=== PATIENT | male | born 2000 | race Caucasian/White ===

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

== ENCOUNTER 2020-09-01 00:45 | Emergency (ER) | payer OTHER ==
[2020-09-01] MEDS ORDERED: MORPHINE 4 MG/ML SYR ONE (01:49)
[2020-09-01] MEDS ORDERED: ONDANSETRON 4 MG/2 ML VIAL ONE (01:49)
[2020-09-01] MEDS ORDERED: NA CHLORIDE 0.9% 1,000 ML ONE (01:49)
[2020-09-01 01:50] LABS: Absolute Lymphocytes (CBC) 1.7 K/uL (0.7-4.9); Basophils % 0.5 % (0-1.3); Hematocrit 46.7 % (39.6-49.0); Lymphocytes % 12.7 % (15.3-44.8); RBC Red Blood Cell Count 5.44 M/uL (4.33-5.43)
[2020-09-01 01:57] LABS: Protime INR 0.97
[2020-09-01 02:05] LABS: ALT/SGPT 55 U/L (12-78); AST/SGOT 28 U/L (15-37); Albumin 4.4 g/dL (3.4-5.0); Alkaline Phosphatase 55 U/L (45-117); BUN Blood Urea Nitrogen 6 mg/dL (7-18); Bicarbonate 22 mmol/L (21-32); Bilirubin Direct 0.1 mg/dL (0-0.2); Bilirubin Total 0.4 mg/dL (0.2-1.0); Glucose Level 120 mg/dL (74-106); Potassium 3.3 mmol/L (3.5-5.1); Protein, Total 7.8 g/dL (6.4-8.2); Sodium Level 144 mmol/L (136-145)
[2020-09-01 03:27] LABS: Barbiturates NEGATIVE (NEGATIVE); Benzodiazepines NEGATIVE (NEGATIVE); Cocaine NEGATIVE (NEGATIVE); METHAMPHETAM NEGATIVE (NEGATIVE); Methadone NEGATIVE (NEGATIVE); Opiates NEGATIVE (NEGATIVE); Phencyclidine NEGATIVE (NEGATIVE); THC Cannibis NEGATIVE (NEGATIVE)
[2020-09-01] MEDS ORDERED: LIDOCAINE 2% MPF 5 ML VIAL ONE (05:06)
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
[2020-09-01 06:28] VITALS: TEMP 99
[2020-09-01 06:35] VITALS: BP 115/56; O2SAT 95
--- NOTE | 2020-09-01 20:26 | RAD REPORT ---
EXAM DESCRIPTION: CT - Head C Spine Cap W Con - 09/01/2020 6:39 am ADDENDUM #1 THIS REPORT CONTAINS FINDINGS THAT MAY BE CRITICAL TO PATIENT CARE: The findings were communicated via telephone conference with Dr. Cristina on 09/01/2020 3:46 AM CDT. The results were acknowledged and understood. Electronically signed by: Zeke Vail MD 09/01/2020 3:47 AM CDT End of Addendum EXAM: CT Head COMPARISON: None. CLINICAL HISTORY: [facility] MAIN TRAUMA TECHNIQUE: Axial images were obtained from skull base to vertex without intravenous contrast. Imag es viewed on bone and brain windows. Multiplanar reformats were performed. Automated exposure contr ol was utilized on this examination as a dose lowering technique. FINDINGS: Brain parenchyma, ventricles, dura, meninges, and extra-axial spaces: Ventricles and sulci are normal. No abnormal attenuation of brain parenchyma is present. No acute intracranial hemor rhage or abnormal extra-axial fluid collections are present. Vascular structures: No hyperdense arteries or veins. Calvarium, mastoid air cells, paranasal sinuses and orbits: A small left scalp hematoma is present. T here is also a small left supraorbital scalp contusion. The calvarium is normal. The mastoid air cell s are clear. Visualized paranasal sinuses are unremarkable. Orbital structures are unremarkable. IMPRESSION: 1. No acute intracranial abnormality. 2. Small left supraorbital and scalp contusions. EXAM DESCRIPTION: CT Maxillofacial COMPARISON: None. CLINICAL HISTORY: [facility] MAIN TRAUMA TECHNIQUE: High resolution axial CT images are obtained through the maxillofacial bones without intr avenous contrast followed by multiplanar reformats. Automated exposure control was utilized on this e xamination as a dose lowering technique. FINDINGS: Maxillofacial bones and mandible: A minimally displaced right nasal bone fracture is noted . Orbital structures: The globes, optic nerves, extraocular muscles, and post septal tissues are intact . Paranasal sinuses: Trace left maxillary sinus mucosal thickening. Soft tissues: Small left supraorbital and left maxillary soft tissue contusions Visualized intracranial structures: The visualized structures of the skull base are normal. Visualize d intracranial structures are normal. IMPRESSION: 1. Mildly displaced right nasal bone fracture. 2. Small left supraorbital and left maxillary soft tissue contusions. EXAM DESCRIPTION: CT Cervical Spine COMPARISON: None. CLINICAL HISTORY: [facility] MAIN TRAUMA TECHNIQUE: Axial CT images were obtained through the entire cervical spine without contrast. [place]it [place] and coronal reconstructions are provided. Automated exposure control was utilized on this examina tion as a dose lowering technique. FINDINGS: Vertebrae: Vertebral statures are normal. Mild reversal of normal cervical lordosis is n oted. No acute fracture, dislocation or destructive osseous process is present. Spinal canal, foramina, and facet joints: No significant spinal canal or foraminal stenoses. No significant facet arthropathy. Paraspinous soft-tissues: Normal. Thyroid: Normal. Other Findings: None. IMPRESSION: Mild reversal of normal cervical lordosis may be positional or due to muscular strain or spasm. EXAM DESCRIPTION: CT Chest, Abdomen, and Pelvis COMPARISON: None. CLINICAL HISTORY: [facility] MAIN TRAUMA TECHNIQUE: CT images through the chest, abdomen, and pelvis following IV contrast. Multiplanar refor mats. Automated exposure control was utilized on this examination as a dose lowering technique. CT CHEST FINDINGS: Heart and mediastinum: Heart size is normal. No lymphadenopathy. Thyroid gland: Visualized portions are normal. Lungs: Clear. Airways: No filling defects. No bronchiectasis. Pleura: No pneumothorax. No significant pleural effusion. Musculoskeletal and soft tissues: Within normal limits for age. CHEST IMPRESSION: Normal CT of the chest. CT ABDOMEN & PELVIS FINDINGS: Liver: Normal. Gallbladder and biliary: Normal gallbladder. Unremarkable biliary tree. Pancreas: Normal. Spleen: Normal. Kidneys and adrenal glands: Normal adrenal glands. Normal kidneys Stomach and Small Bowel: The stomach and small bowel are normal. Urinary bladder: Distended. Prostate/Male Urogenital: Normal. Colon and Appendix: The colon is unremarkable. No evidence of appendicitis. Peritoneal cavity: No ascites or free air. Retroperitoneum and lymph nodes: There is mild central mesenteric haziness with an increased number o f lymph nodes. Vascular: Normal. Musculoskeletal and soft tissues: Soft tissues are unremarkable. No aggressive bone lesions. No com pression fracture. There is 2 mm anterolisthesis L5 on S1 with bilateral pars fractures. ABDOMEN AND PELVIS IMPRESSION: 1. Bilateral L5 pars fractures may be acute or chronic. Recommend correlation with point tenderness. 2. Mild central mesenteric haziness is nonspecific but could be seen with mesenteric panniculitis. Electronically signed by: Zeke Vail MD 09/01/2020 3:17 AM CDT Due to temporary technical issues with the PACS/Fluency reporting system, reports are being signed by the in house radiologists without review as a courtesy to insure prompt reporting. The interpreting radiologist is fully responsible for the content of the report.
--- NOTE | 2020-09-01 21:07 | RAD REPORT ---
EXAM DESCRIPTION: CT - Facial Bones W/ Mpr - 09/01/2020 6:38 am ADDENDUM #1 THIS REPORT CONTAINS FINDINGS THAT MAY BE CRITICAL TO PATIENT CARE: The findings were communicated via telephone conference with Dr. Cristina on 09/01/2020 3:46 AM CDT. The results were acknowledged and understood. Electronically signed by: Zeke Vail MD 09/01/2020 3:47 AM CDT End of Addendum EXAM: CT Head COMPARISON: None. CLINICAL HISTORY: [facility] MAIN TRAUMA TECHNIQUE: Axial images were obtained from skull base to vertex without intravenous contrast. Imag es viewed on bone and brain windows. Multiplanar reformats were performed. Automated exposure contr ol was utilized on this examination as a dose lowering technique. FINDINGS: Brain parenchyma, ventricles, dura, meninges, and extra-axial spaces: Ventricles and sulci are normal. No abnormal attenuation of brain parenchyma is present. No acute intracranial hemor rhage or abnormal extra-axial fluid collections are present. Vascular structures: No hyperdense arteries or veins. Calvarium, mastoid air cells, paranasal sinuses and orbits: A small left scalp hematoma is present. T here is also a small left supraorbital scalp contusion. The calvarium is normal. The mastoid air cell s are clear. Visualized paranasal sinuses are unremarkable. Orbital structures are unremarkable. IMPRESSION: 1. No acute intracranial abnormality. 2. Small left supraorbital and scalp contusions. EXAM: CT Maxillofacial COMPARISON: None. CLINICAL HISTORY: [facility] MAIN TRAUMA TECHNIQUE: High resolution axial CT images are obtained through the maxillofacial bones without intr avenous contrast followed by multiplanar reformats. Automated exposure control was utilized on this e xamination as a dose lowering technique. FINDINGS: Maxillofacial bones and mandible: A minimally displaced right nasal bone fracture is noted . Orbital structures: The globes, optic nerves, extraocular muscles, and post septal tissues are intact . Paranasal sinuses: Trace left maxillary sinus mucosal thickening. Soft tissues: Small left supraorbital and left maxillary soft tissue contusions Visualized intracranial structures: The visualized structures of the skull base are normal. Visualize d intracranial structures are normal. IMPRESSION: 1. Mildly displaced right nasal bone fracture. 2. Small left supraorbital and left maxillary soft tissue contusions. EXAM: CT Cervical Spine COMPARISON: None. CLINICAL HISTORY: [facility] MAIN TRAUMA TECHNIQUE: Axial CT images were obtained through the entire cervical spine without contrast. [place] and coronal reconstructions are provided. Automated exposure control was utilized on this examina tion as a dose lowering technique. FINDINGS: Vertebrae: Vertebral statures are normal. Mild reversal of normal cervical lordosis is n oted. No acute fracture, dislocation or destructive osseous process is present. Spinal canal, foramina, and facet joints: No significant spinal canal or foraminal stenoses. No significant facet arthropathy. Paraspinous soft-tissues: Normal. Thyroid: Normal. Other Findings: None. IMPRESSION: Mild reversal of normal cervical lordosis may be positional or due to muscular strain or spasm. EXAM: CT Chest, Abdomen, and Pelvis COMPARISON: None. TECHNIQUE: [facility] MAIN TRAUMA TECHNIQUE: CT images through the chest, abdomen, and pelvis following IV contrast. Multiplanar refor mats. Automated exposure control was utilized on this examination as a dose lowering technique. CT CHEST FINDINGS: Heart and mediastinum: Heart size is normal. No lymphadenopathy. Thyroid gland: Visualized portions are normal. Lungs: Clear. Airways: No filling defects. No bronchiectasis. Pleura: No pneumothorax. No significant pleural effusion. Musculoskeletal and soft tissues: Within normal limits for age. CHEST IMPRESSION: Normal CT of the chest. CT ABDOMEN & PELVIS FINDINGS: Liver: Normal. Gallbladder and biliary: Normal gallbladder. Unremarkable biliary tree. Pancreas: Normal. Spleen: Normal. Kidneys and adrenal glands: Normal adrenal glands. Normal kidneys Stomach and Small Bowel: The stomach and small bowel are normal. Urinary bladder: Distended. Prostate/Male Urogenital: Normal. Colon and Appendix: The colon is unremarkable. No evidence of appendicitis. Peritoneal cavity: No ascites or free air. Retroperitoneum and lymph nodes: There is mild central mesenteric haziness with an increased number o f lymph nodes. Vascular: Normal. Musculoskeletal and soft tissues: Soft tissues are unremarkable. No aggressive bone lesions. No com pression fracture. There is 2 mm anterolisthesis L5 on S1 with bilateral pars fractures. ABDOMEN AND PELVIS IMPRESSION: 1. Bilateral L5 pars fractures may be acute or chronic. Recommend correlation with point tenderness. 2. Mild central mesenteric haziness is nonspecific but could be seen with mesenteric panniculitis. Electronically signed by: Zeke Vail MD 09/01/2020 3:17 AM CDT Due to temporary technical issues with the PACS/Fluency reporting system, reports are being signed by the in house radiologists without review as a courtesy to insure prompt reporting. The interpreting radiologist is fully responsible for the content of the report.
[2020-09-05 16:50] LABS: Urine Blood TRACE (Negative); Urine Glucose NEGATIVE (Negative); Urine Protein TRACE (Negative); Urine pH 6.5 (5.0-7.0)
== END 2020-09-01 06:20 | disposition home or self-care (01) ==
LOC: ER 00:45
PROC: 0HQ1XZZ Repair Face Skin, External Approach (ICD-10-PCS; principal; 2020-09-01)
DX: S01.112A Laceration without foreign body of left eyelid and periocular area, initial encounter (principal); S02.2XXA Fracture of nasal bones, initial encounter for closed fracture; S32.059A Unspecified fracture of fifth lumbar vertebra, initial encounter for closed fracture; Y04.0XXA Assault by unarmed brawl or fight, initial encounter; F17.210 Nicotine dependence, cigarettes, uncomplicated; Y92.009 Unspecified place in unspecified non-institutional (private) residence as the place of occurrence of the external cause
CPT/HCPCS: 85025; 80048; 36415; 85610; 80076; 80307 ×8; 85730; 70450; 72125; 71260; 70486; 76377; 74177; 12011; Q9967; J7030; J2405; 81003; 96374; 96375; 99285; G0390